=== PATIENT | male | born 1930 | race Caucasian/White ===

== ENCOUNTER 2017-01-06 21:30 | Emergency (ER) | payer OTHER ==
[~2017-01-06] VITALS: Ht 175.3 cm; Wt 77.1 kg
[2017-01-06 23:51] VITALS: BP 169/73
== END 2017-01-06 23:48 | disposition home or self-care (01) ==
LOC: ER 21:36
DX: T17.928A Food in respiratory tract, part unspecified causing other injury, initial encounter (principal); T18.9XXA Foreign body of alimentary tract, part unspecified, initial encounter; J02.9 Acute pharyngitis, unspecified; Z87.891 Personal history of nicotine dependence; M19.90 Unspecified osteoarthritis, unspecified site; J44.9 Chronic obstructive pulmonary disease, unspecified; Z85.9 Personal history of malignant neoplasm, unspecified
CPT/HCPCS: 70490